=== PATIENT | female | born 1945 | race Caucasian/White ===

== ENCOUNTER 2016-07-04 12:22 | Inpatient (IN) ==
--- NOTE | 2016-07-03 12:43 | Discharge Summary ---
Date of Encounter: 07/08/16 Time of Encounter: 06:40 - Discharge Diagnosis (1) Avascular necrosis of bone of left hip Priority: Primary Status: Acute (2) Thrombocytopenia Priority: Secondary Status: Chronic (3) Adrenal insufficiency Priority: Secondary Status: Chronic (4) COPD (chronic obstructive pulmonary disease) Priority: Secondary Status: Chronic Qualifiers: COPD type: unspecified COPD Qualified Code(s): J44.9 - Chronic obstructive pulmonary disease, unspecified (5) HTN (hypertension) Priority: Secondary Status: Chronic Qualifiers: Hypertension type: unspecified secondary hypertension Qualified Code(s): I15.9 - Secondary hypertension, unspecified; I15 - Secondary hypertension (6) Myelodysplastic syndrome Priority: Secondary Status: Chronic (7) Sjoegren syndrome Priority: Secondary Status: Chronic Qualifiers: Sjogren's organ involvement: unspecified organ involvement Qualified Code(s ): M35.00 - Sicca syndrome, unspecified - Discharge Medications Home Medications: Albuterol Sulfate [Albuterol Inhaler] 1 - 2 puff IH Q4HR PRN 01/22/16 [History] Amlodipine [Norvasc] 2.5 mg PO HS 01/22/16 [History] Amlodipine [Norvasc] 5 mg PO QAM 01/22/16 [History] Cholecalciferol (D-3) [Vitamin D] 1,000 unit PO DAILY 01/22/16 [History] Cyclosporine [Sandimmune] 100 mg PO BID 01/22/16 [History] Dapsone 100 mg PO DAILY 01/22/16 [History] Magnesium Oxide [Magnesium] 1,200 mg PO BID 01/22/16 [History] Metoprolol [Lopressor] 25 mg PO BID 01/22/16 [History] Ondansetron HCl [Zofran] 4 mg PO Q8H PRN 01/22/16 [History] Zinc [Zinc Lozenge] 50 mg PO DAILY 01/22/16 [History] Aspirin Enteric Coated [Aspirin EC] 325 mg PO DAILY #21 tablet.dr 07/03/16 [Rx] OxyCODONE Immed Rel [Roxicodone 5 MG] 5 - 10 mg PO Q6HR PRN #40 tablet 07/03/16 [Rx] Calcium Carbonate [Calcium] 600 mg PO DAILY 07/04/16 [History] Dexlansoprazole [Dexilant] 60 mg PO DAILY 07/04/16 [History] Gabapentin [Neurontin] 100 mg PO DAILY 07/04/16 [History] Hydroxychloroquine [Plaquenuil] 200 mg PO DAILY 07/04/16 [History] Allergies/Adverse Reactions: Allergies Iodinated Contrast Media - Oral and Allergy (Verified 07/04/16 13:01) passed out olmesartan [From Benicar] Allergy (Verified 07/04/16 13:01) Rash levofloxacin [From Levaquin] Adverse Reaction (Verified 07/04/16 13:01) Nausea Tizanidine [From Zanaflex] Adverse Reaction (Verified 07/04/16 13:01) Anxiety Primary care physician: Maia Aragon - Patient Status Disposition: Transfer SNF Condition: Good Functional capacity at discharge: uses cane/walker Overall status at discharge: patient is progressing back to baseline - Discharge Instructions Follow Up With: Placido Fung MD [Partnered Physician] - 07/18/16 11:15 am Maia Aragon DO [Primary Care Provider] - Additional Instructions: Discharge Instructions: Total Hip Replacement Please call [facility] ([phone]), your Primary Care Physician, or report to the Emergency Room if you have any of the following symptoms: Nausea, vomiting, fever greater that 101.5, swelling, chest pain, shortness of breath, increased pain/redness/drainage/odor for your incision site, numbness/ tingling, or any other concerning symptoms. ACTIVITY:Weight-bearing as tolerated for 8 weeks with hip dislocation precautions that physical therapy taught you. You may progress as tolerated under the guidance of your physical therapist. You do not need to sleep with a pillow between your legs. You can also seep on the operative side or on your stomach. MEDICATIONS: Upon discharge resume your home medications. Take all the medications as prescribed. Take a stool softener if taking narcotic pain medications. Stool softeners are only effective if you drink enough fluids. Drink 6-8 glass of water or fluids a day, unless this is not allowed for another health problem. Despite using stool softeners, if you haven't had a bowel movement in 3 days, please switch to a gentle laxative. Gentle laxatives are sold over the counter. You should have a bowel movement within 24 hours, if not call the office. You will be discharged from the hospital with a prescription for pain medication. You are encouraged to decrease the use of narcotic pain medication as tolerated. Should you require a refill, please call the office. [facility] prescribes narcotic pain medication for only 4-6 weeks after surgery. If you require pain medication beyond this time periord, you may be referred to your Primary Care Physician or to the Pain Clinic for further evaluation. Plan ahead for refills on pain medication as many narcotics either need to be picked up at the office or mailed. It is best to call 48-72 hours in advance of needing a prescription refill so you don't run out of medication. To help control the post-operative pain, you may take NSAIDs (Aleve,Advil, Motrin, ibuprofen, naprosyn) or Tylenol as prescribed on the bottle in addition to the pain medication. ANTICOAGULATION (blood thinners): Continue your Aspirin, Lovenox or Coumadin as prescribed to help prevent a blood clot in the leg or in the lungs. As long as your incision remains dry and you tolerate the NSAIDs (Aleve, Advil, Motrin, ibuprofen, naprosyn), it is OK to use the NSAIDS while you are taking your anticoagulation medication. Should your incision start to drain, stop the NSAID and contact our office. Common symptoms of blood clot in the legs include: localized pain, swelling, calf tenderness, redness or discoloration of the skin. Blood clot in the lung symptoms include: shortness of breath, rapid pulse, sweating, and chest pain that worsens with deep breathing, coughing up blood, lightheadedness, feelings of anxiety. If you experience any of these symptoms notify your physician immediately, go to the emergency room, or if having trouble breathing, call 911. WOUND CARE: Leave the dressing on for 7 days. You may change the dressing if it is saturated greater than 50%. You can shower but not a tub bath or submerge your incision in water. Wash your hands with antibacterial soap, rinse and dry prior to any wound care. If you have vidal the visiting nurse or rehab facility can remove the stapes 10-14 days after surgery and place steri-strips across the wound. Leave the steri-strips in place until they fall off on their won. You may let water from the shower run on top of the steri-stirips. If you do not have a visiting nurse or rehab facility, you will need to return to the office at 10-14 days for the vidal to be removed. FOLLOW-UP: Please follow up with your surgeon in the orthopedic clinic in 6 weeks from the day of surgery. If you have vidal that need to be removed, you will need to come back to the office in 10-14 days from the day of surgery. - Hospital Course Hospital course: Ms. Sánchez is a 71 year old female The patient had an uneventful postoperative course. They received antibiotics and physical therapy and were discharged in stable condition. There will follow -up in the office in 2 weeks. Patient did well history of anemia became slightly worse on surgery discharge stable condition, aspirin DVT prophylaxis - Time Spent with Patient Total time spent providing and/or coordinating discharge services:
--- NOTE | 2016-07-04 12:45 | History & Physical Report ---
Date of Encounter: 07/04/16 Time of Encounter: 12:45 24 Hour HP Update - Instructions Instructions: If the History and Physical is less than 30 days old and was completed prior to A.M. admission and or procedure and has NOT been updated on calendar day of procedure please complete this update prior to performing procedure. - Update Patient reports changes in Medical Condition: No Changes in assessment/condition: No Changes in Medication: No Preop tests/diagnostics Reviewed: Yes Surgery Remains Indicated: Yes Consent for Planned Operative Procedure(s) Verified: Yes - Pre-Operative Checklist Preoperative Checklist Indicated: No Prophylactic Antibiotic Ordered: Yes Is VTE Prophylaxis Indicated?: Yes
[2016-07-04] MEDS ORDERED: CeFAZolin Pre 2,000 MG/100 ML 2,000 MG/100 ML BAG IVPB ONE (12:46)
[2016-07-04] MEDS ORDERED: Albuterol 2.5 MG/3 ML NEBULIZER IH ONE (12:51)
[2016-07-04] MEDS ORDERED: Ringers Solution, Lactated 1,000 ML IVC SCH ×2 (13:00→18:25)
[2016-07-04 13:08] LABS: Hematocrit 27.7 % (35.3-44.9); Hemoglobin 8.7 g/dL (11.5-15.4)
[2016-07-04] MEDS ORDERED: *HR* Propofol 200 MG/20 ML VIAL IVP ONE (13:20)
[2016-07-04] MEDS ORDERED: Lidocaine -MPF 2% 2 ML VIAL ONE (13:20)
[2016-07-04] MEDS ORDERED: Ondansetron 4 MG/2 ML VIAL ONE (13:20)
[2016-07-04] MEDS ORDERED: Dexamethasone 4 MG/ML VIAL ONE (13:20)
[2016-07-04] MEDS ORDERED: Lidocaine -MPF 4% 5 ML AMPUL ONE (13:20)
[2016-07-04] MEDS ORDERED: *HR* FentaNYL (PF) 100 MCG/2 ML VIAL ONE (13:20)
[2016-07-04] MEDS ORDERED: *HR* Succinylcholine 200 MG/10 ML VIAL IVP ONE (13:20)
[2016-07-04] MEDS ORDERED: *HR* Promethazine 25 MG/ML VIAL IVP PRN (13:28)
--- NOTE | 2016-07-04 13:40 | Anesthesia Evaluation PreOp ---
Date of Encounter: 07/04/16 Time of Encounter: 13:39 - Past History Planned Operation: Left Total hip Cardiac History: HTN Pulmonary History: COPD (on 2L O2 NC at night) [employer] History: Denies Any Significant HX Other Medical History: Other (Myelodysplastic syndrom) Anesthesia History: No Prior Anesthetic Complications, Past Anesthesia (R. THR, CRISTINA, Splenectomy, tonsillectomy) : No Alcohol Use: none Drug use: none Medications and Allergies Albuterol Sulfate [Albuterol Inhaler] 1 - 2 puff IH Q4HR PRN 01/22/16 [History] Amlodipine [Norvasc] 2.5 mg PO HS 01/22/16 [History] Amlodipine [Norvasc] 5 mg PO QAM 01/22/16 [History] Cholecalciferol (D-3) [Vitamin D] 1,000 unit PO DAILY 01/22/16 [History] Cyclosporine [Sandimmune] 100 mg PO BID 01/22/16 [History] Dapsone 100 mg PO DAILY 01/22/16 [History] Magnesium Oxide [Magnesium] 1,200 mg PO BID 01/22/16 [History] Metoprolol [Lopressor] 25 mg PO BID 01/22/16 [History] Ondansetron HCl [Zofran] 4 mg PO Q8H PRN 01/22/16 [History] Zinc [Zinc Lozenge] 50 mg PO DAILY 01/22/16 [History] Aspirin Enteric Coated [Aspirin EC] 325 mg PO DAILY #21 tablet. 07/03/16 [Rx] OxyCODONE Immed Rel [Roxicodone 5 MG] 5 - 10 mg PO Q6HR PRN #40 tablet 07/03/16 [Rx] Calcium Carbonate [Calcium] 600 mg PO DAILY 07/04/16 [History] Dexlansoprazole [Dexilant] 60 mg PO DAILY 07/04/16 [History] Gabapentin [Neurontin] 100 mg PO DAILY 07/04/16 [History] Hydroxychloroquine [Plaquenuil] 200 mg PO DAILY 07/04/16 [History] Allergies Iodinated Contrast Media - Oral and Allergy (Verified 07/04/16 13:01) passed out olmesartan [From Benicar] Allergy (Verified 07/04/16 13:01) Rash levofloxacin [From Levaquin] Adverse Reaction (Verified 07/04/16 13:01) Nausea Tizanidine [From Zanaflex] Adverse Reaction (Verified 07/04/16 13:01) Anxiety - Meds/Allergy Pre-op Review Medications Reviewed: Yes Allergies Reviewed: Yes Beta Blockers on Current Med List: Yes If Beta Blockers taken, Date/Time (Last Dose taken): 07/04/2016 @ 08:30 Anesthesia Results - Labs 07/04/16 12:57 Laboratory Tests 06/25/16 06/25/16 06/25/16 11:50 11:50 11:50 WBC 7.8 Hgb Hct Plt Count 178 INR 1.1 Sodium 136 Potassium 3.6 Chloride 99 Carbon Dioxide 31 H BUN 22 H Creatinine 0.90 07/04/16 12:57 WBC Hgb 8.7 L Hct 27.7 L Plt Count INR Sodium Potassium Chloride Carbon Dioxide BUN Creatinine - Imaging EKG: image reviewed (SR) Anesthesia Exam O2 Sat Height 1.54 m Height 1.54 m Weight 54.431 kg Weight 54.431 kg O2 Sat by Pulse Oximetry 91 Vital Signs Temp Pulse Resp BP Pulse Ox 98.0 F 66 18 136/67 91 L 07/04/16 12:37 07/04/16 12:37 07/04/16 12:37 07/04/16 12:37 07/04/16 12:37 Height: 5' 1/2" Weight: 119# NPO (# of Hours): > 8 hrs Pain Scale: 0 Pain Scale Used: Numeric (1 - 10) - HEENT Pupil (Motor): Pupils equal, EOMI Mallampati: III Teeth: Poor dentition (@ loose lower incisors) Oral Opening: Greater than 3 - [employer] LOC: Oriented [employer] Motor: Normal RUE, Normal LUE, Normal RLE, Normal LLE, Normal Face [employer] Sensory: Normal: RUE, LUE, RLE, LLE, Face - Cardiac Rhythm: Regular Murmur: None JVD: No Carotid Bruit: No - Pulmonary Breath Sounds: bilateral Clear Respiratory Effort: Symmetrical Anesthesia Assess/Plan ASA Score: 3 Modified Roxana Scale for Level of Consciousness: Cooperative, oriented, and tranquil Anesthetic Plan: General Autologous Blood: Yes Monitoring Plan: Standard Monitors Recovery Plan: PACU
--- NOTE | 2016-07-04 16:03 | Orthopedic Operative Note ---
Date of procedure: 07/04/16 Pre-op diagnosis: Left hip arthritis Post-op diagnosis: same Procedure: Procedure: Left Total Hip Replacment Estimated blood loss:300 cc Hardware: Biomet DM Cup: 50 G7 fin cup Femoral size 13 echo full profile lateralized stem Head: +9 head with [place] Procedural Notes: Grade 4 arthritic changes femoral head acetabular socket. Operative procedure: The patient was brought to the operating room and placed on the operating room table. After general anesthesia was administered the patient was placed in the lateral decubitus position with the operative leg up. All pressure points were padded appropriately and the head was stabilized in the neutral position. The operative extremity was prepped and draped in the sterile surgical fashion patient received IV antibiotic prior to skin incision. A standard posterior approach is made to the operative hip, the incision was made through the skin and subcutaneous tissue hemostasis was obtained with Bovie cautery. Using careful sharp dissection the fascia was identified and incised exposing the external rotators. The external rotators were released off the greater trochanter and tagged with #2 FiberWire suture. The capsule was T'd open and the hip was brought into internal rotation. Patient noted to have grade 4 arthritic changes femoral head. The femoral neck cut was made at the appropriate level. An anterior capsulotomy was performed for the anterior retractor. Soft tissues removed from the acetabulum. Patient noted to have grade 4 arthritic changes acetabulum. Acetabulum was first reamed medially, and then reamed in 15 degrees of anteversion and 45 degrees off the horizontal. It was reamed up to the appropriate size 50 The appropriate-sized 50 acetabular cup was impacted in place in 15 degrees of anteversion and 45 degrees off the horizontal. This had good fit and fixation. The hip was brought back in to internal rotation and prepared with the ammonia box operator followed by the canal finder followed by broaching process in 20 degrees anteversion. It was broached up to the appropriate size 13 The femoral implant was impacted in place in 20 degrees of anteversion. Trial reduction found the hip to be stable with 9 head and [place]. The trials were removed and the real implants were impacted in place. The hip was reduced, patient had apparent equal leg lengths. The hip had excellent stability with forward flexion to 90 degrees adduction of 30 degrees and internal rotation of 60 degrees. The hip had no shuck. The hips after 2 minutes with a Betadine saline solution. It was irrigated out with 2 L of pulse irrigation. The external rotators were reattached to drill holes in the greater trochanter. Fascia was closed with a running #2 PDS suture. The deep tissue was irrigated and closed deep with #1 PDS suture superficially with 0 PDS suture and skin was closed with Dermabond and skin vidal. The patient was placed in a sterile dressing and abduction pillow. The patient was extubated and transferred to the recovery room in stable condition. Anesthesia: GETA Surgeon: Placido Fung Condition: stable Disposition: PACU
[2016-07-04] MEDS: *HR* HYDROmorphone (PF) 1 MG/ML SYRINGE IVP PRN ×4 (16:24→16:44)
[2016-07-04 16:56] LABS: Hematocrit 22.8 % (35.3-44.9); Hemoglobin 7.4 g/dL (11.5-15.4)
[2016-07-04] MEDS ORDERED: Ketorolac 30 MG/ML VIAL ONE (17:11)
--- NOTE | 2016-07-04 17:24 | Anesthesia Evaluation Post Op ---
Date of Encounter: 07/04/16 Time of Encounter: 17:23 - Vital Signs Vital Signs: Last Vital Signs Temp 97.2 F L 07/04/16 17:14 Pulse 66 07/04/16 17:14 Resp 16 07/04/16 17:14 BP 158/75 07/04/16 17:14 Pulse Ox 96 07/04/16 17:14 - Lungs Lungs: Clear Ascult./Percussion - Airway Airway: Non-obstructed - Cardiovascular Regular Rate - Mental Status Mental Status: Alert & Oriented, Answers Appropriately - Pain Pain Scale: 2 - Nausea Vomiting Nausea Vomiting: Not Present - Hydration Hydration: Ice chips - Discharge PostOp Status: Transfer Patient to floor
[2016-07-04] MEDS ORDERED: *HR* Enoxaparin 30 MG/0.3 ML SYRINGE SQ SCH (18:00)
[2016-07-04] MEDS ORDERED: MOM Conc 10 ML UD.LIQ PO PRN (18:25)
[2016-07-04] MEDS ORDERED: Ondansetron 4 MG/2 ML VIAL IVP PRN (18:25)
[2016-07-04] MEDS ORDERED: Acetaminophen 325 MG TABLET PO PRN (18:25)
[2016-07-04] MEDS ORDERED: *HR* OxyCODONE Immed Rel 5 MG TABLET PO PRN (18:25)
[2016-07-04] MEDS ORDERED: *HR* LORazepam 2 MG/ML VIAL IVP PRN (18:25)
[2016-07-04] MEDS ORDERED: Sennosides 8.6 MG TABLET PO PRN (18:25)
[2016-07-04] MEDS ORDERED: *HR* HYDROmorphone (PF) 1 MG/ML SYRINGE IVP PRN (18:25)
[2016-07-04] MEDS ORDERED: Temazepam 15 MG CAPSULE PO PRN (18:25)
[2016-07-04] MEDS ORDERED: Naloxone 0.4 MG/ML INJ IVP PRN (18:25)
[2016-07-04] MEDS: Ascorbic Acid 500 MG TABLET PO SCH (18:49)
[2016-07-04] MEDS: amLODIPine 5 MG TABLET PO SCH (20:45)
[2016-07-04] MEDS: CycloSPORINE (SandIMMUNE) 100 MG CAPSULE PO SCH (21:42)
[2016-07-04] MEDS ORDERED: 0.9 % Sodium Chloride 250 ML ONE (22:28)
[2016-07-05] MEDS: ceFAZolin 2,000 MG in D5% in Water 100 ML IVPB SCH ×2 (01:30→06:03)
[2016-07-05] MEDS ORDERED: *HR* Enoxaparin 30 MG/0.3 ML SYRINGE SQ SCH ×2 (06:00)
--- NOTE | 2016-07-05 06:44 | Orthopedics Progress Note ---
Date of Encounter: 07/05/16 Time of Encounter: 06:43 - Assessment and Plan (1) Avascular necrosis of bone of left hip Current Visit: Yes Status: Acute (2) Thrombocytopenia Current Visit: No Status: Chronic (3) Adrenal insufficiency Current Visit: No Status: Chronic (4) COPD (chronic obstructive pulmonary disease) Current Visit: No Status: Chronic Qualifiers: COPD type: unspecified COPD Qualified Code(s): J44.9 - Chronic obstructive pulmonary disease, unspecified (5) HTN (hypertension) Current Visit: No Status: Chronic Qualifiers: Hypertension type: unspecified secondary hypertension Qualified Code(s): I15.9 - Secondary hypertension, unspecified; I15 - Secondary hypertension (6) Myelodysplastic syndrome Current Visit: No Status: Chronic (7) Sjoegren syndrome Current Visit: No Status: Chronic Qualifiers: Sjogren's organ involvement: unspecified organ involvement Qualified Code(s ): M35.00 - Sicca syndrome, unspecified Subjective Interval history: Patient was seen this morning doing well without complaints. Afebrile vital signs stable. Operative extremity: Neurovascularly intact Dressing clean dry and intact Calves nontender Assessment and plan: Continue with postoperative care Hematocrit pending Objective Vital signs: Vital Signs Temp Pulse Resp BP Pulse Ox 07/05/16 04:50 99.2 F 68 16 162/68 93 L 07/05/16 01:25 98.8 F 64 16 110/64 95 07/04/16 22:56 98.7 F 66 16 104/58 94 L 07/04/16 22:41 98.9 F 66 16 109/62 94 L 07/04/16 21:17 94 L 07/04/16 21:00 98.7 F 65 16 100/54 94 L 07/04/16 20:00 98.3 F 69 16 114/64 94 L 07/04/16 18:52 97.9 F 65 16 121/65 95 07/04/16 18:31 98.6 F 60 16 116/71 94 L 07/04/16 18:10 97.7 F 61 20 125/66 98 07/04/16 17:34 97.8 F 57 16 130/66 95 07/04/16 17:24 57 16 144/70 96 07/04/16 17:14 97.2 F L 66 16 158/75 96 07/04/16 17:04 59 16 143/74 96 07/04/16 16:54 60 16 151/75 98 07/04/16 16:44 97.3 F L 62 16 129/78 98 07/04/16 16:34 60 16 133/64 97 07/04/16 16:24 58 16 147/71 98 07/04/16 16:14 98.2 F 59 16 148/73 97 07/04/16 12:37 98.0 F 66 18 136/67 91 L Intake and Output 07/04/16 07/04/16 07/05/16 15:59 23:59 07:59 Intake Total 100 / 100 585 / 585 450 / 450 Output Total 300 / 300 150 / 150 Balance 100 / 100 285 / 285 300 / 300 Intake: IV Fluids 100 / 100 100 / 100 Ancef 2,000 MG In 100 / 100 Dextrose 5% 100 ML @ 200 mls/hr IVPB Q8H ASHLEY Rx#: [id number] Ancef Premix 2,000 MG/100 100 / 100 ML 2,000 mg In 100 ml @ 200 mls/hr IVPB PREOP ONE Rx#:[id number] Blood Product 585 / 585 350 / 350 Rbcs Leuko Poor As-1 0 / 0 350 / 350 Unit [id number] Rbcs Leuko Poor As-1 585 / 585 Unit [id number] Output: Urine 150 / 150 Estimated Blood Loss 300 / 300 Other: Weight 54.431 kg - Labs CBC & BMP: 07/04/16 16:35 Labs: Abnormal lab results Hgb 7.4 g/dL (11.5-15.4) L 07/04/16 16:35 Hct 22.8 % (35.3-44.9) L 07/04/16 16:35 - VTE Documentation of Mechanical Device: Venous foot pump, device Consult Discharge Plan - Plan Referrals: Maia Aragon DO [Primary Care Provider] -
[2016-07-05 07:06] LABS: Hematocrit 28.5 % (35.3-44.9); Hemoglobin 9.2 g/dL (11.5-15.4)
[2016-07-05 07:27] LABS: Calcium 9.3 mg/dL (8.6-10.8); Potassium 4.7 mEq/L (3.5-4.5)
[2016-07-05] MEDS: *HR* OxyCODONE Immed Rel 5 MG TABLET PO PRN ×2 (08:44→16:11)
[2016-07-05] MEDS: amLODIPine 5 MG TABLET PO SCH ×2 (08:45→20:54)
[2016-07-05] MEDS: CycloSPORINE (SandIMMUNE) 100 MG CAPSULE PO SCH ×2 (08:45→20:55)
[2016-07-05] MEDS: Gabapentin 100 MG CAPSULE PO SCH (08:45)
[2016-07-05] MEDS: Ascorbic Acid 500 MG TABLET PO SCH ×2 (08:45→16:11)
[2016-07-05] MEDS: Magnesium Oxide 400 MG TABLET PO SCH (08:45)
[2016-07-05] MEDS: Multivit/Ca/Min/Fe/FA 1 TAB TABLET PO SCH (08:45)
[2016-07-05] MEDS: ZINC 50 MG PO SCH (08:46)
[2016-07-05] MEDS: Cholecalciferol (D-3) 1,000 UNIT TABLET PO SCH (08:46)
[2016-07-06] MEDS: *HR* OxyCODONE Immed Rel 5 MG TABLET PO PRN ×3 (01:04→09:58)
[2016-07-06 04:59] LABS: Hematocrit 23.9 % (35.3-44.9)
[2016-07-06 05:14] LABS: Calcium 9.2 mg/dL (8.6-10.8); Potassium 4.4 mEq/L (3.5-4.5)
[2016-07-06] MEDS ORDERED: *HR* Enoxaparin 30 MG/0.3 ML SYRINGE SQ SCH (06:00)
[2016-07-06] MEDS ORDERED: 0.9 % Sodium Chloride 250 ML ONE (06:11)
[2016-07-06 06:55] VITALS: BP 114/56
[2016-07-06] MEDS: Ascorbic Acid 500 MG TABLET PO SCH (09:04)
[2016-07-06] MEDS: Cholecalciferol (D-3) 1,000 UNIT TABLET PO SCH (09:04)
[2016-07-06] MEDS: Multivit/Ca/Min/Fe/FA 1 TAB TABLET PO SCH (09:04)
[2016-07-06] MEDS: Magnesium Oxide 400 MG TABLET PO SCH (09:05)
[2016-07-06] MEDS: CycloSPORINE (SandIMMUNE) 100 MG CAPSULE PO SCH (09:06)
[2016-07-06] MEDS: Gabapentin 100 MG CAPSULE PO SCH (09:06)
[2016-07-06] MEDS: ZINC 50 MG PO SCH (09:07)
[2016-07-06] MEDS: amLODIPine 5 MG TABLET PO SCH (09:07)
== END 2016-07-06 10:18 | DRG 470 ==
LOC: SAMDAY 12:22 → 3NENU 18:08
PROVIDERS: ADMIT Orthopaedic Surgery; ATTEND Orthopaedic Surgery